=== PATIENT | male | born 1985 | race Caucasian/White ===

== ENCOUNTER 2022-09-13 07:30 | Outpatient (RCR) | payer BC, SELFPAY | END 2022-12-27 23:59 | disposition home or self-care (01) | PROVIDERS: PCP Family Medicine; Visit Provider Family Medicine | DX: G56.03 Carpal tunnel syndrome, bilateral upper limbs (principal); Z51.89 Encounter for other specified aftercare | CPT/HCPCS: 97033; 97035; 97110; 97140; 97166; X5282 ==

== ENCOUNTER 2023-08-05 08:00 | Outpatient (CLI) | payer BC, SELFPAY | END 2023-08-05 08:01 | disposition home or self-care (01) | LOC: NFLDREF 08-14 12:09 | PROVIDERS: PCP Family Medicine; Referring Provider Family Medicine; Visit Provider Family Medicine | DX: Z13.6 Encounter for screening for cardiovascular disorders (principal); Z13.1 Encounter for screening for diabetes mellitus | CPT/HCPCS: 80061; 82947 ==

== ENCOUNTER 2025-05-19 11:43 | Outpatient (CLI) | payer BC, SELFPAY | END 2025-05-19 11:44 | disposition home or self-care (01) | LOC: AMB 05-20 18:47 | PROVIDERS: PCP Family Medicine; Visit Provider Family Medicine | DX: R07.89 Other chest pain (principal) | CPT/HCPCS: A0425; A0433 ==

== ENCOUNTER 2025-05-19 12:20 | Emergency (ER) | payer BC, SELFPAY ==
[2025-05-19] VITALS (20 sets, daily range): BP systolic 124–142; BP diastolic 75–101; PULSE 73–80; RESP 7–27; TEMP 36.5; O2SAT 97–98; BMI 27.7
--- NOTE | 2025-05-19 | CRLHL7_ITS ---
For Patients: As a result of the Century Cures Act, medical imaging exams and procedure reports are released immediately into your electronic medical record. You may view this report before your referring provider. If you have questions, please contact your health care provider. Indication: Left-sided chest pain Comparison: None available. Technique: PA and lateral views of the chest Findings: There is likely minimal evolving airspace opacity in the left lung base. The right hemithorax is clear. There is no pneumothorax or pleural effusion. The cardiomediastinal silhouette is within normal limits. The bony thorax is grossly intact. Impression: Minimal airspace opacity in the left lung base commensurate with likely developing infiltrate. Dictated by Roman Stein MD @ 05/19/2025 3:11:21 PM (Electronically Signed)
[2025-05-19 13:17] LABS: Hematocrit* 39.8 % (37.0-53.0); Hemoglobin* 13.4 gm/dL (13.5-17.5); Immature Granulocytes Abs Auto 0.00 K/uL (0.00-0.30); Immature Granulocytes Pct Auto 0.0 %; Lymphocytes Absolute Auto 1.00 K/uL (0.90-2.90); Mean Corpuscular HGB Conc 34 gm/dL (32-36); Mean Corpuscular Hemoglobin 31 pg (26-34); Mean Corpuscular Volume 92 fL (80-100); RDW Coefficient of Variation % 11.9 % (11.5-15.5); Red Blood Count* 4.35 m/uL (4.30-5.90); White Blood Count* 4.08 K/uL (4.50-11.00)
[2025-05-19 13:18] LABS: Slide Review Reflex No
[2025-05-19 13:19] LABS: Albumin* 4.3 g/dL (3.3-5.0); Chloride* 98 mmol/L (96-114); Potassium* 4.0 mmol/L (3.6-5.1); Sodium* 135 mmol/L (135-149)
[2025-05-19 13:22] LABS: Alanine Aminotransferase* 24 U/L (4-50); Alkaline Phosphatase* 54 U/L (40-150); Anion Gap 11 mEq/L (7-15); Aspartate Amino Transferase* 26 U/L (12-35); Bilirubin Total* 0.7 mg/dL (0.1-1.5); Blood Urea Nitrogen* 17 mg/dL (5-24); Calcium* 9.0 mg/dL (8.4-10.6); Carbon Dioxide* 26 mmol/L (20-32); Creatinine* 0.8 mg/dL (0.5-1.5); Est. Creatinine Clearance* 137.33; Estimated Glomerular Filt Rate 114 ml/min; Glucose* 111 mg/dL (60-115); Total Protein* 6.9 g/dL (6.0-8.3)
--- NOTE | 2025-05-19 14:01 | ED_ITS ---
HPI - Chest Pain General Date Seen: 05/19/25 Chief Complaint: Chest Pain Stated Complaint: Chest pain Time Seen by Provider: 05/19/25 12:21 Source: patient and EMS Mode of arrival: EMS Limitations: no limitations History of Present Illness HPI narrative: Patient is a 39-year-old male with no pertinent medical history presenting for left-sided chest pain. He states he has been having some diffuse chest pain for the past month but states he felt musculoskeletal in nature in states he has been doing a lot of heavy lifting recently. Today though he noticed more chest pain specifically on the left side of the chest. 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 States it was on and off throughout his shift. He finished at 11 and trying to get a clinic appointment for the chest pain but then it got acutely worse while he was on following. States he had pain going into his shoulder and his left arm felt numb. He states those symptoms were short lived and resolved on their own. Does state he felt better after all the medications provided via EMS. The and given few doses of nitro, fentanyl, IV morphine. He does states he did heavy lifting over the past couple days and wonder if that this was causing the pain. She states pain does not seem to change much with movement. Does state there is a specific spot that hurts. Says pushes on it makes it feels better. Denies any history of heart disease or immediate family heart disease. Last says [facility] care provider 2 years ago in states he has no medical issues. No other concerns noted at this time. Denies fevers, chills, headache, vision changes, lightheadedness, dizziness. Does state he has some mild shortness of breath with the chest pain occurred. Denies any history of blood clots, lower extremity swelling, cancer history, recent surgeries, hormone use, hemoptysis, recent travel. No other concerns noted Related Data Home Medications ?Medication ?Instructions ?Recorded ?Confirmed multivitamin 1 tab PO QDAY 08/07/2308/11 Allergies Allergy/AdvReac Type Severity Reaction Status Date / Time No Known Drug Allergies Allergy Verified 08/11/24 10:59 Review of Systems Status of ROS Reports: 10 or more systems reviewed and unremarkable except as noted in History and below PFSH [facility] Medical History Right epididymitis (2017) ?N45.1 - Epididymitis (ICD-10) Surgical History History of vasectomy (08/12/14) ?Z98.52 - Vasectomy status (ICD-10) History of sebaceous cyst ?Z87.2 - Personal history of diseases of the skin and subcutaneous tissue (ICD-10) History of appendectomy ?Z90.49 - Acquired absence of other specified parts of digestive tract (ICD- 10) Social History Narrative: former chewing tobacco quit 2013 What is your current living situation?: I presently have a place to live In the past 12 months, utilities in danger of being shut off: no In past 12 months, lack of transportation kept you from medical appts, meetings, work, or getting things needed for daily living: no In the past 12 mos, have been you worried that your food would run out before you had money to buy more?: never true In the past 12 mos, the food you bought just didn't last and you didn't have money to buy more?: never true Smoking Status: Never smoker Do you use any of these nicotine containing products: None Second hand tobacco smoke exposure: Yes (coworkers smoke outdoors) How often does anyone, including family, friends and others, physically hurt you : never How often does anyone, including family, friends and others, insult or talk down to you: never How often does anyone, including family, friends and others, threaten you with harm: never How often does anyone, including family, friends and others, scream or curse at you: never Exam Narrative Exam Narrative: Const: Well-nourished, Well-developed, in mild distress Eyes: PERRL, no conjunctival injection, and symmetrical lids HENT: Atraumatic external nose and ears. Moist mucous membranes. Neck: Symmetric, trachea midline, No thyromegaly. CVS: RRR, No murmurs or gallops. Peripheral pulses 2+ and equal in all extremities RESP: Unlabored respiratory effort. Clear to auscultation bilaterally. GI: Nontender/Nondistended, No rebound or guarding. MSK:Extremities w/o deformity, Normal Active ROM, does have some mild chest wall tenderness over the area that hurts but states oushing on the area does not reproduce the pain Skin: Warm, Dry. No rashes or lesions. Neuro: Normal Muscle tone, No focal neurological deficits. Psych: Awake, Alert, & Oriented x3. Appropriate mood and affect. Const Vital Signs, click to edit/add: Vital Signs - 24 hr 05/19/25 12:29 05/19/25 12:30 05/19/25 12:31 Temperature 97.7 F Pulse Rate Pulse Rate [Pulse Oximeter] 80 Respiratory Rate 10 L 13 20 Blood Pressure 127/84 Blood Pressure [Right Upper Arm] 142/75 H Pulse Oximetry 98 Oxygen Delivery Method Room Air 05/19/25 12:32 05/19/25 12:45 05/19/25 13:02 Temperature Pulse Rate Pulse Rate [Pulse Oximeter] Respiratory Rate 19 20 13 Blood Pressure 131/88 142/89 H Blood Pressure [Right Upper Arm] Pulse Oximetry Oxygen Delivery Method 05/19/25 13:03 05/19/25 13:15 05/19/25 13:30 Temperature Pulse Rate Pulse Rate [Pulse Oximeter] Respiratory Rate 13 7 L 16 Blood Pressure Blood Pressure [Right Upper Arm] Pulse Oximetry Oxygen Delivery Method 05/19/25 13:32 05/19/25 13:33 05/19/25 13:46 Temperature Pulse Rate Pulse Rate [Pulse Oximeter] Respiratory Rate 16 12 16 Blood Pressure 137/101 H 131/91 H Blood Pressure [Right Upper Arm] Pulse Oximetry Oxygen Delivery Method 05/19/25 14:08 05/19/25 14:09 05/19/25 14:09 Temperature Pulse Rate 73 73 73 Pulse Rate [Pulse Oximeter] Respiratory Rate 13 13 Blood Pressure 134/91 H 134/91 H Blood Pressure [Right Upper Arm] Pulse Oximetry 97 98 98 Oxygen Delivery Method 05/19/25 14:09 05/19/25 14:15 05/19/25 14:30 Temperature Pulse Rate 73 Pulse Rate [Pulse Oximeter] Respiratory Rate 16 18 18 Blood Pressure 134/91 H Blood Pressure [Right Upper Arm] Pulse Oximetry 98 Oxygen Delivery Method 05/19/25 14:32 Temperature Pulse Rate Pulse Rate [Pulse Oximeter] Respiratory Rate 16 Blood Pressure 124/89 Blood Pressure [Right Upper Arm] Pulse Oximetry Oxygen Delivery Method Course Vital Signs Vital signs: Initial Vital Signs Respiratory Rate 10 L 05/19/25 12:29 Blood Pressure 127/84 05/19/25 12:29 Blood Pressure Mean 98 05/19/25 12:29 Vital Signs Respiratory Rate 10 L 05/19/25 12:29 Blood Pressure 127/84 05/19/25 12:29 Temperature 97.7 F 05/19/25 12:31 Pulse Rate 73 05/19/25 14:09 Respiratory Rate 16 05/19/25 14:32 Blood Pressure 124/89 05/19/25 14:32 Pulse Oximetry 98 05/19/25 14:09 Oxygen Delivery Method Room Air 05/19/25 12:31 MDM - Chest Pain MDM Narrative Medical decision making narrative: Patient is a 39-year-old male presenting for chest pain. The differential diagnosis of chest pain is broad and includes common etiologies such as musculoskeletal strain, GERD, pneumonia, etc. More serious etiologies considered include PE, coronary artery disease, pneumothorax, aortic dissection, aortic aneurysm. Will do chest x-ray look for the signs of pneumonia or pneumothorax. EKG and troponin or to look for signs of cardiac abnormalities. He is PERC negative and PE can not be ruled out. He is otherwise appeared stable and I have low concern for aortic dissection or aortic aneurysm. Will also order CBC, CMP. EKG interpreted by myself shows no acute concerning abnormalities. Lab work returned showing no acute concerning abnormalities. Troponin within normal limits. Considering recency of worsening pain will repeat troponin. Chest x- ray reviewed in PACS system by myself shows possible left lower lobe infiltrate. This is also seen by the radiologist.. Repeat troponin is also within normal limits. He is doing well and is safe for discharge. Will provide him a [employer] instymeds. He is agreeable to this plan Lab Data Labs: Lab Results 05/19/25 05/19/25 05/19/25 Range/Units 12:42 13:13 14:45 WBC 4.08 L (4.50-11.00) K/uL RBC 4.35 (4.30-5.90) m/uL Hgb 13.4 L (13.5-17.5) gm/dL Hct 39.8 (37.0-53.0) % MCV 92 (80-100) fL MCH 31 (26-34) pg MCHC 34 (32-36) gm/dL RDW Coeff of Whitley 11.9 (11.5-15.5) % Plt Count 224 (140-440) K/uL Neut % (Auto) 60.1 (42.0-72.0) % Lymph % (Auto) 24.5 (20-44) % Elbert % (Auto) 11.0 (0.0-11.0) % Eos % (Auto) 3.9 (0.0-7.0) % Baso % (Auto) 0.5 (0.0-3.0) % Neut # (Auto) 2.50 (1.7-7.0) K/uL Lymph # (Auto) 1.00 (0.90-2.90) K/uL Elbert # (Auto) 0.40 (0.00-0.90) K/UL Eos # (Auto) 0.20 (0.00-0.50) K/uL Baso # (Auto) 0.00 (0.00-0.30) K/uL Abs Immat Gran (auto) 0.00 (0.00-0.30) K/uL Imm/Tot Granulo (auto) 0.0 % Sodium 135 (135-149) mmol/L Potassium 4.0 (3.6-5.1) mmol/L Chloride 98 (96-114) mmol/L Carbon Dioxide 26 (20-32) mmol/L Anion Gap 11 (7-15) mEq/L BUN 17 (5-24) mg/dL Creatinine 0.8 (0.5-1.5) mg/dL Estimated Creat Clear 137.33 Estimated GFR 114 ml/min Glucose 111 (60-115) mg/dL Calcium 9.0 (8.4-10.6) mg/dL Total Bilirubin 0.7 (0.1-1.5) mg/dL AST 26 (12-35) U/L ALT 24 (4-50) U/L Alkaline Phosphatase 54 (40-150) U/L POC Troponin I High Sensi < 2.9 L < 2.9 L (2.9-28.0) pg/mL Total Protein 6.9 (6.0-8.3) g/dL Albumin 4.3 (3.3-5.0) g/dL Lipase 130 (23-300) U/L Imaging Data Chest x-ray: Attestation: I have reviewed the pertinent imaging results. Radiologist's impression: Minimal airspace opacity in the left lung base commensurate with likely developing infiltrate. Dictated by Roman Stein MD @ 05/19/2025 3:11:21 PM ECG Data Attestation: I personally reviewed and interpreted this ECG as follows: Prior ECG tracings: not available for review Interpretation: Normal sinus rhythm with a rate of 84 beats per minute, normal intervals, normal axis, no ST or T-wave abnormalities. Discharge Plan Discharge Clinical Impression: Left lower lobe pneumonia Qualifiers: Pneumonia type: due to unspecified organism Qualified Code(s): J18.9 - Pneumonia, unspecified organism Patient Disposition: Home, Self-Care Condition: Stable Instructions: Pneumonia (ED) Additional Instructions: Take Tylenol and ibuprofen for your pain. Does appear like your developing a pneumonia. Take the azithromycin as prescribed. Pick it up via instymeds. If symptoms are not improving follow-up with your primary care provider. Return to emergency department for new or worsening symptoms. Your symptoms may also be related to musculoskeletal pain. Prescriptions: No Action multivitamin Tablet 1 tab PO QDAY Follow Up/Referrals: Dada Young MD [Primary Care Provider, Family Practice] Stand Alone Forms: SafetyCertified Info Instructions
== END 2025-05-19 15:36 | disposition home or self-care (01) ==
PROVIDERS: Emergency Provider Student in an Organized Health Care Education/Training Program; PCP Family Medicine
DX: J18.9 Pneumonia, unspecified organism (principal)
CPT/HCPCS: 36415; 71046; 80053; 83690; 84484; 85025; 93005; 99284; 99285